=== PATIENT | female | born 1950 | race Two or more races ===

== ENCOUNTER 2017-12-21 08:15 | Emergency (ER) | payer OTHER ==
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
[2017-12-21 10:14] VITALS: BP 132/77
== END 2017-12-21 10:18 | disposition home or self-care (01) ==
LOC: EDUNIT#
DX: M54.5 Low back pain (principal); V43.92XA Unspecified car occupant injured in collision with other type car in traffic accident, initial encounter